=== PATIENT | female | born 1990 | race Caucasian/White ===

== ENCOUNTER 2025-05-22 02:04 | Emergency (ER) | payer MEDICAID ==
[~2025-05-22] VITALS: Ht 157.5 cm; Wt 64.0 kg
[2025-05-22 02:25] VITALS: O2SAT 99
[2025-05-22 02:58] LABS: BASOPHILS % 0.6 % (0.0-2.0); EOSINOPHILS % 0.4 % (0.0-5.0); HEMATOCRIT. 42.4 % (36.0-48.0); HEMOGLOBIN. 14.4 g/dL (12.0-16.0); LYMPHOCYTES % 33.0 % (20.0-50.0); MEAN PLATELET VOLUME 9.3 fl (7.4-10.4); MONOCYTES % 7.3 % (2.0-8.0); NEUTROPHILS % 58.7 % (40.0-76.0); PLATELET 244 x1000/uL (130-400); RED BLOOD CELL COUNT 4.50 mill/uL (4.2-5.4); RED CELL DISTRIBUTION WIDTH 12.2 % (11.6-14.6)
[2025-05-22 03:15] LABS: CLARITY URINE TURBID (CLEAR); COLOR URINE YELLOW (YELLOW); GLUCOSE URINE NEGATIVE (NEGATIVE); KETONES URINE NEGATIVE (NEGATIVE); LEUKOCYTE ESTERASE URINE 1+ (NEGATIVE); NITRITE URINE NEGATIVE (NEGATIVE); OCCULT BLOOD URINE NEGATIVE (NEGATIVE); PH URINE 5.5 (4.5-8.0); PROTEIN URINE TRACE (NEGATIVE); SPECIFIC GRAVITY URINE 1.031 (1.005-1.030); UROBILINOGEN URINE 1.0 E.U./dL (0.2-1.0)
[2025-05-22] MEDS ORDERED: ONDANSETRON HCL 4MG/2ML INJ IV ONE (03:15)
[2025-05-22] MEDS ORDERED: ACETAMINOPHEN 500MG TABLET PO ONE (03:15)
[2025-05-22 03:24] LABS: CREATININE 0.9 mg/dL (0.6-1.0); UREA NITROGEN BLOOD 9 mg/dL (9-23)
[2025-05-22 03:26] LABS: ASPARTATE AMINOTRANSFERASE 15 IU/L (<34); BILIRUBIN DIRECT 0.2 mg/dL (<=3.0); BILIRUBIN TOTAL 0.5 mg/dL (0.1-1.0); PROTEIN TOTAL 7.2 g/dL (6.0-8.3)
[2025-05-22 05:00] VITALS: TEMP 36.7
[2025-05-22 05:01] LABS: HCG SCREEN NEGATIVE
[2025-05-22] MEDS: ONDANSETRON HCL 4MG/2ML INJ IV NR (05:14)
[2025-05-22] MEDS: ACETAMINOPHEN 500MG TABLET PO NR (05:14)
[2025-05-22] MEDS: SODIUM CHLORIDE 0.9% 1,000 ML IV ONE (05:14)
[2025-05-22] MEDS: KETOROLAC 15MG/ML VIAL IV ONE (05:20)
[2025-05-22] MEDS: CEPHALEXIN 250MG CAPSULE PO ONE (05:20)
[2025-05-22 05:57] LABS: SQUAMOUS EPITHELIAL CELL URINE 3+ /lpf (RARE/1+)
[2025-05-22 06:02] LABS: BACTERIA URINE 1+; RBC URINE 0-2 /hpf (0-2)
[2025-05-22 06:10] VITALS: TEMP 98
[2025-05-22] MEDS: IOHEXOL-300 100 ML BOTTLE ONE (06:15)
[2025-05-22] MEDS ORDERED: CEPH500C2 MT (06:30)
[2025-05-22] MEDS ORDERED: ONDA-239 PO (06:31)
[2025-05-22 06:52] VITALS: BP 110/61; PULSE 65; RESP 17; O2SAT 98
== END 2025-05-22 06:54 | disposition home or self-care (01) ==
LOC: ER 02:04 → CMPBEDREQ 08:05
DX: N39.0 Urinary tract infection, site not specified (principal); R10.31 Right lower quadrant pain; Z79.899 Other long term (current) drug therapy
CPT/HCPCS: 99285; 74177; 96374; 96361; 96375; 80076; 80048; 81003; 81025; 84703; 83690; 83735; 85025; 87086; 87186; 87077; 36415; J1885; Q9967; J2405; J7030